=== PATIENT | female | born 1955 | race Caucasian/White ===

== ENCOUNTER 2018-09-08 05:13 | Observation (INO) ==
--- NOTE | 2018-08-19 15:49 | Anesthesiology Consultation ---
Date of Service August 19, 2018 Assessment & Plan (1) Encounter for pre-operative examination: Plan: - PCP= 08/18/18= "medically stable and cleared for c-spine surgery." Chart Review Chart Review: Acceptable Risk for Surgery and Patient NOT seen in Pre Admission Testing History Surgery Operation Date: 09/08/18 07:45 Proposed Procedures p C6-C7 Anterior Cervical Discectomy and Fusion, C4-C6 Removal of Instrumentation - Henrry Fletcher, DO Height/Weight Height: 5 ft 6 in Weight: 95.254 kg Allergies Allergy/AdvReac Type Severity Reaction Status Date / Time codeine AdvReac Severe N/V, Verified 08/14/18 10:08 DIAPHORESIS aspirin AdvReac Unknown VOMITING Verified 08/14/18 10:08 fentanyl AdvReac Unknown VOMITING Verified 08/14/18 10:08 Medications Home Medications Medication Instructions Recorded Confirmed Last Taken No Known Home Medications 08/14/18 08/14/18 Unknown Past Medical History Medical History Acid reflux Asthma NO INHALER Fibromyalgia History of anxiety Hx of Raynaud's syndrome IBS (irritable bowel syndrome) Obesity Osteoarthritis Sleep apnea NO DEVICE Venous angioma of brain LEFT FRONTAL LOBE Past Family History Family History Uncle Family hx of colon cancer Past Surgical History Surgical History History of X2 History of appendectomy History of carpal tunnel surgery RIGHT History of colonoscopy with polypectomy History of esophagogastroduodenoscopy (EGD) History of lumbar fusion L3-L4 LUMBAR FUSION History of surgery CEREBRAL ANGIOGRAPHY Hx of adenoidectomy Hx of dilation and curettage Hx of foot surgery RIGHT TOE FUSION Hx of fusion of cervical spine C3-C6 Hx of hemorrhoidectomy Hx of hysterectomy Hx of tonsillectomy Hx of total hip arthroplasty B/L; RIGHT JORGE= 04/13/18= GRADE 1 VIEW, URENA 2, ETT 7.0 AT [facility] Hx of tubal ligation History of PONV Yes STOP BANG Total 3 Social History Smoking Status: Former smoker Do You Dip or Chew Tobacco: No Smoking End Date: QUIT YEARS AGO Hx Alcohol Use: No Hx Substance Use: No Testing Electrocardiogram Date: 03/25/18 NSR at 69bpm. TWI in V2. "within normal limits" per PCP. Chest X-Ray Date: 03/25/18 Findings: + NAD Laboratory Results 08/18/18 WBC 6.77 H/H 13.9/43.3 PLATELETS 364 SODIUM 141 POTASSIUM 3.7 CHLORIDE 105 CO2 28 BUN 10.3 CREATININE 0.72 GLUCOSE 109 PT 10.6 PTT 30.9 INR 0.95
[2018-09-08] MEDS ORDERED: ACETAMINOPHEN 500 MG TAB PO SCH (06:00)
[2018-09-08] MEDS ORDERED: CEFAZOLIN 2000MG 2,000 MG/15 ML SYR IV SCH (06:00)
[2018-09-08] MEDS ORDERED: CeleBREX 200 MG CAP PO SCH (06:00)
[2018-09-08] MEDS ORDERED: LR 15ML/HR IV SCH (06:00)
[2018-09-08] MEDS ORDERED: GABAPENTIN 300 MG x 2 PO SCH (06:00)
[2018-09-08] MEDS ORDERED: fentaNYL citrate 100 MCG/2 ML VIAL ONE ×3 (06:26→08:49)
[2018-09-08] MEDS ORDERED: MIDAZOLAM HCL 1 MG/ML 2ML VIAL ONE (06:26)
[2018-09-08] MEDS ORDERED: HYDROmorphone INJ 2 MG/ML SYR/VIAL ONE (06:26)
[2018-09-08] MEDS ORDERED: NEOSTIGMINE METHYLSULFATE 1 MG/ML 10ML VIAL ONE (06:28)
[2018-09-08] MEDS ORDERED: ONDANSETRON INJ 2 MG/ML 2 ML VIAL ONE (06:28)
[2018-09-08] MEDS ORDERED: DEXAMETHASONE SOD INJ 4 MG/ML VIAL ONE (06:28)
[2018-09-08] MEDS ORDERED: PROPOFOL IV EMULSION 10 MG/ML 20 ML VIAL IV ONE (06:28)
[2018-09-08] MEDS ORDERED: ROCURONIUM BROMIDE 10 MG/ML 5 ML VIAL ONE (06:28)
[2018-09-08] MEDS ORDERED: LIDOCAINE HCL 2% 2 ML VIAL/AMP(20MG/ML) INFIL ONE (06:28)
[2018-09-08] MEDS ORDERED: GLYCOPYRROLATE 0.2 MG/ML VIAL ONE (06:28)
[2018-09-08] MEDS ORDERED: BACITRACIN INJ 50,000 UNIT VIAL ONE (07:07)
[2018-09-08] MEDS ORDERED: MEPERIDINE HCL 25 MG/ML CARP IV PRN (07:18)
[2018-09-08] MEDS ORDERED: PROMETHAZINE HCL 12.5 MG in SODIUM CHLORIDE 0.9% 50 ML IV PRN (07:18)
[2018-09-08] MEDS ORDERED: ONDANSETRON INJ 2 MG/ML 2 ML VIAL IV PRN ×2 (07:18→11:14)
[2018-09-08] MEDS ORDERED: LABETALOL HCL IV 5 MG/ML 20ML IV PRN (07:18)
[2018-09-08] MEDS ORDERED: ePHEDrine sulfate 50 MG/ML AMP IV PRN (07:18)
[2018-09-08] MEDS ORDERED: ATROPINE SULFATE 0.1 MG/ML 10ML SYR IV PRN (07:18)
[2018-09-08] MEDS ORDERED: PHENYLEPHRINE 100MCG/ML 5ML SYR IV PRN (07:18)
[2018-09-08] MEDS ORDERED: SCOPOLAMINE 1.5 MG TDSY TD ONE (07:19)
[2018-09-08] MEDS ORDERED: SCOPOLAMINE 1.5 MG TDSY ONE (07:21)
--- NOTE | 2018-09-08 07:28 | History & Physical Bridge Note ---
Date of Service September 08, 2018 History & Physical Bridge Note I have examined the patient, reviewed the History & Physical and in the interval since the performance of the History & Physical I have noted the following changes of clinical significance: no changes noted
--- NOTE | 2018-09-08 07:29 | History & Physical Report ---
Date of Service September 08, 2018 Assessment & Plan (1) Cervical stenosis of spinal canal: Anterior cervical discectomy and fusion C6-7 removal of instrumentation C4 -C6 Present on Admission?: Yes History of Present Illness Chief Complaint: Neck and arm pain Primary Care Provider: Hayes Ramirez This is a 63-year-old female well-known to me with chronic persistent neck and arm symptoms. After failing extensive course of nonoperative care she is here for surgical intervention. Allergies Allergy/AdvReac Type Severity Reaction Status Date / Time codeine AdvReac Severe N/V, Verified 09/08/18 05:42 DIAPHORESIS aspirin AdvReac Unknown VOMITING Verified 09/08/18 05:42 fentanyl AdvReac Unknown VOMITING Verified 09/08/18 05:42 Home Medications Home Medications Medication Instructions Recorded Confirmed Type No Known Home Medications 08/14/18 09/08/18 History Past Med/Surg History Family History Uncle Family hx of colon cancer Social History Current Living Situation: Spouse Other Information That Helps Us Care for You: No Feels Safe at Home: Yes Safety Concerns: Feels Safe At This Time Smoking Status: Former smoker Do You Dip or Chew Tobacco: No Smoking End Date: QUIT YEARS AGO Hx Alcohol Use: No Hx Substance Use: No Beliefs That Will Affect Care: None Preferred Language: Andorran Communication Ability: Effective Pastrycook Required: No Physical Exam 2 Vital Signs (Past 24 Hours): Last Vital Signs Temp 36.8 C 09/08/18 05:44 Pulse 67 09/08/18 05:44 Resp 20 09/08/18 05:44 BP 144/88 H 09/08/18 05:44 Pulse Ox 97 09/08/18 05:44 Results & Data Medications Administered Acetaminophen (Tylenol) 1,000 mg PO PREOP ALEC Stop: 09/08/18 18:00 Last Admin: 09/08/18 05:56 Dose: 1,000 mg Celecoxib (Celebrex) 200 mg PO PREOP ALEC Stop: 09/08/18 18:00 Last Admin: 09/08/18 05:56 Dose: 200 mg Gabapentin (Neurontin) 600 mg PO PREOP ALEC Stop: 09/08/18 18:00 Last Admin: 09/08/18 05:56 Dose: 600 mg Lactated Ringer's (Lr) 1,000 mls @ 15 mls/hr IV .Q24H ALEC Stop: 09/09/18 05:59 Last Admin: 09/08/18 06:08 Dose: 15 mls/hr
[2018-09-08] MEDS ORDERED: CHECK SCOPOLAMINE PATCH PLACEMENT SCH (08:00)
[2018-09-08] MEDS ORDERED: ePHEDrine sulfate 50 MG/ML SYR ONE (08:22)
[2018-09-08] MEDS ORDERED: METOCLOPRAMIDE HCL INJ 5 MG/ML 2 ML VIAL ONE (08:22)
[2018-09-08] MEDS ORDERED: PHENYLEPHRINE 100MCG/ML 5ML SYR ONE (08:22)
[2018-09-08] MEDS ORDERED: raNITIdine HCl 25 MG/ML VIAL ONE (08:22)
[2018-09-08] MEDS ORDERED: ESMOLOL HCL INJ 10 MG/ML 10ML VIAL IV ONE (09:20)
--- NOTE | 2018-09-08 09:20 | Operative Report ---
Post Operative Report Pre & Post Diagnosis Operation Date: 09/08/18 07:45 Pre-Op Diagnosis: Cervical spinal stenosis with radiculopathy Post-Op Diagnosis: Same Procedure Operation Date: 09/08/18 07:45 Actual Procedures #1 removal of anterior cervical plate and screws C4-5 C5-6. #2 exploration of fusion C4-5 C5-6. #3 anterior cervical discectomy C6-7 with bilateral foraminotomies. #4 anterior cervical arthrodesis C6-7. #5 placement of cortical allograft filled with DBM 9 mm in height at C6-7. #6 application gary plate and screws across C6-7. Surgeon Henrry Fletcher, DO Chairman Emeritus None Estimated Blood Loss 10 Findings Consistent with Post-Op Diagnosis Specimens None Description of Procedure Patient was met with preoperatively case discussed all questions addressed. After informed consent obtained patient was taken to the operative suite underwent intubation placed in a supine position the Apolinar table and Holland headholder. All bony prominences well-padded eyes inspected to ensure no external pressure placed upon the. This point the anterior cervical spine was prepped and draped in a sterile fashion. With the assistance of fluoroscopy identified the C5-6 disc space and a transverse incision was placed along the right anterior aspect of the cervical spine overlying this region. Sharp dissection with the assistance of bipolar elective cautery was performed down to and exposing the anterior cervical spine from C4-C7. The plate was identified and removed without difficulty. The fusion was noted to be intact between C4-5 and C5-6. I then performed a complete discectomy of C6-7 out to the uncovertebral joints bilaterally. Leonard distracting pins were utilized to assist in visualization. Removed all posterior annular fibers longitudinal ligament bilateral foraminotomies performed for complete decompression. Endplates were then burred to subcortical bleeding bone and a 9 mm cortical allograft filled with DBM tamped in position. Distraction apparatus was removed and a gary plate and screws applied with the assistance of fluoroscopy. Incision was then copious irrigated explored to ensure no damage to surrounding structures remaining bleeding. 10 round MANJULA drain inserted. The incision was then closed with 2 Vicryl in a fashion of 4 Monocryl for final skin closure Steri-Strip sterile dressings placed. Patient awakened and taken to PACU in a stable condition. I attest to the content of the Intraoperative Record and any orders documented therein. Any exceptions are noted below.
[2018-09-08] MEDS: HYDROmorphone INJ 1 MG/ML SYRINGE IV PRN ×4 (09:45→10:00)
--- NOTE | 2018-09-08 10:09 | Fluoroscopy Report ---
FL cervical 2-3V HISTORY: 63 years-old Female C6-C7 ACDF status post fusion of the cervical spine COMPARISON: Cervical spine. Images 06/12/2009 TECHNIQUE: 3 spot fluoroscopic images of the cervical spine were obtained utilizing 12.2 seconds fluo roscopy time FINDINGS: Anterior fusion hardware is noted at what appears to be the C6-C7 level anteriorly. Remote postsurgic al changes are seen at C4-C5 and C5-C6. Alignment appears satisfactory on these images. IMPRESSION: Fluoroscopic assistance as above. Please see operative report for further details. The above report was generated using voice recognition software. It may contain grammatical, syntax o r spelling errors. Electronically signed by: Lance Peña M.D. 09/08/2018 10:08 AM
[2018-09-08] MEDS ORDERED: LARYING-O-JET KIT (LTA) ONE (10:10)
--- NOTE | 2018-09-08 10:42 | Anesthesiology Progress Note ---
Date of Service September 08, 2018 Anesthesia Post Procedure Vital Signs Vital Signs: Temp Pulse Pulse Resp BP BP Pulse Ox 09/08/18 10:25 36.5 C 57 L 14 108/78 94 09/08/18 10:15 55 L 14 116/74 94 09/08/18 10:05 56 L 14 130/82 95 09/08/18 09:55 57 L 14 128/84 95 09/08/18 09:45 59 L 14 132/84 94 09/08/18 09:35 65 14 135/83 94 09/08/18 09:26 36.0 C L 82 14 130/88 94 09/08/18 05:44 36.8 C 67 20 144/88 H 97 Pain Intensity Neck: Pain Intensity: 3 Notes Mental Status: alert / awake / arousable Patient Amnestic to Procedure: Yes Nausea / Vomiting: adequately controlled Pain: adequately controlled Airway Patency, RR, SpO2: stable & adequate BP & HR: stable & adequate Hydration State: stable & adequate Anesthetic Complications: no major complications apparent and Pt Satisfied with anesthetic care Notes: The patient is awake and doing well. Her neck does not appear to be swollen. The patient was reminded to let her nurse know immediately if she has any neck swelling or difficulty breathing when she is on the floor.
[2018-09-08] MEDS ORDERED: NALOXONE HCL 0.4 MG/1 ML VIAL/CARP IV PRN (11:14)
[2018-09-08] MEDS ORDERED: MAGNESIUM HYDROXIDE SUSP 30 ML UDC PO PRN (11:14)
[2018-09-08] MEDS ORDERED: DEXAMETHASONE SOD PHOSPHATE 8 MG in SYRINGE 0 ML IV PRN (11:14)
[2018-09-08] MEDS ORDERED: DO NOT ADMINISTER FLU VACCINE PRN (11:14)
[2018-09-08] MEDS ORDERED: DiphenhydrAMINE HCL 50 MG/ML VIAL IV PRN (11:14)
[2018-09-08] MEDS ORDERED: LORazepam 0.5 MG/1 ML VIAL IV PRN (11:14)
[2018-09-08] MEDS ORDERED: LORazepam 0.5 MG TAB PO PRN (11:14)
[2018-09-08] MEDS ORDERED: OXYCODONE HCL IR 5 MG TAB (IMMEDIATE RELEASE) PO PRN (11:14)
[2018-09-08] MEDS ORDERED: HYDROmorphone INJ 0.5 MG/0.5 ML SYR IV PRN (11:14)
[2018-09-08] MEDS ORDERED: DO NOT ADMINISTER PNEUMOCOCCAL VACCINE PRN (11:14)
[2018-09-08] MEDS ORDERED: HYDROCODONE/ACETAMOPHEN 5/325MG TAB PO PRN (11:14)
[2018-09-08] MEDS ORDERED: RACEPINEPHRINE 2.25% NEBU SOLN 0.5 ML VIAL INH PRN (11:14)
[2018-09-08] MEDS ORDERED: ACETAMINOPHEN 1,000 MG/100 ML VIAL IV PRN (11:14)
[2018-09-08] MEDS: CHECK SCOPOLAMINE PATCH PLACEMENT SCH ×2 (12:30→16:04)
[2018-09-08] MEDS ORDERED: CHECK SCOPOLAMINE PATCH PLACEMENT ONE (13:15)
[2018-09-08] MEDS: SODIUM CHLORIDE 0.9% 1000ML 1,000 ML IV SCH (13:39)
[2018-09-08] MEDS: CEFAZOLIN 2000MG 2,000 MG/15 ML SYR IV SCH ×2 (13:39→21:40)
[2018-09-08] MEDS ORDERED: NURSING DECISION MEDICATION ONE (16:06)
[2018-09-08] MEDS ORDERED: COUGH DROP (SUGAR FREE) LOZ 24 LOZ/1 BOX BUCCAL PRN (16:33)
[2018-09-08] MEDS: DOCUSATE SODIUM 100 MG CAP PO SCH (21:40)
[2018-09-09] MEDS: CHECK SCOPOLAMINE PATCH PLACEMENT SCH ×3 (00:01→16:17)
[2018-09-09] MEDS: SODIUM CHLORIDE 0.9% 1000ML 1,000 ML IV SCH (02:07)
[2018-09-09] MEDS: CEFAZOLIN 2000MG 2,000 MG/15 ML SYR IV SCH (06:08)
[2018-09-09] MEDS: DOCUSATE SODIUM 100 MG CAP PO SCH ×2 (08:37→20:34)
--- NOTE | 2018-09-09 08:40 | Anesthesiology Progress Note ---
Date of Service September 09, 2018 Anesthesia Post Procedure Vital Signs Vital Signs: Temp Pulse Pulse Resp BP Pulse Ox Pulse Ox 09/09/18 05:44 36.6 C 65 18 108/67 95 09/09/18 05:32 96 09/09/18 03:44 36.8 C 64 16 115/76 96 09/09/18 03:40 65 16 97 09/09/18 02:00 36.6 C 86 16 112/74 95 09/09/18 00:04 36.7 C 76 16 96/65 L 96 09/08/18 22:57 78 16 97 09/08/18 21:55 36.6 C 87 16 117/74 95 09/08/18 20:21 77 18 96 09/08/18 20:10 36.6 C 94 H 18 106/69 95 09/08/18 18:10 36.3 C L 93 H 18 118/84 93 09/08/18 16:10 36.4 C L 97 H 16 113/74 95 09/08/18 16:05 80 16 112/72 96 09/08/18 15:35 81 18 95 09/08/18 14:00 61 16 119/79 96 09/08/18 12:53 67 18 129/82 91 09/08/18 12:14 58 L 12 112/73 97 09/08/18 11:35 87 18 97 09/08/18 11:30 64 16 125/82 96 09/08/18 11:00 36.3 C L 88 14 133/88 95 95 09/08/18 10:40 55 L 16 114/71 95 09/08/18 10:25 36.5 C 57 L 14 108/78 94 09/08/18 10:15 55 L 14 116/74 94 09/08/18 10:05 56 L 14 130/82 95 09/08/18 09:55 57 L 14 128/84 95 09/08/18 09:45 59 L 14 132/84 94 09/08/18 09:35 65 14 135/83 94 09/08/18 09:26 36.0 C L 82 14 130/88 94 Pain Intensity Neck: Pain Intensity: 2 Notes Mental Status: alert / awake / arousable Patient Amnestic to Procedure: Yes Nausea / Vomiting: adequately controlled Pain: adequately controlled Airway Patency, RR, SpO2: stable & adequate BP & HR: stable & adequate Hydration State: stable & adequate Anesthetic Complications: no major complications apparent and Pt Satisfied with anesthetic care
--- NOTE | 2018-09-09 10:50 | Orthopedic Progress Note ---
Date of Service September 09, 2018 Assessment & Plan (1) Cervical stenosis of spinal canal: This time we will maintain the MANJULA drain another 24 hours secondary to the extensive dissection required for hardware removal. If she continues to progress appropriately we anticipate discharge home tomorrow. Present on Admission?: Yes Subjective Neck pain well controlled. Arm symptoms improved. No hoarseness or swallowing deficits. Physical Exam 2 Vital Signs (Past 24 Hours): Last Vital Signs Temp 36.7 C 09/09/18 09:44 Pulse 65 09/09/18 09:44 Resp 16 09/09/18 09:44 BP 108/74 09/09/18 09:44 Pulse Ox 96 09/09/18 09:44 Physical Exam: On exam she is in the chair at the bedside. The dressing and drain are intact. She has good strength testing.
[2018-09-10] MEDS: CHECK SCOPOLAMINE PATCH PLACEMENT SCH ×2 (00:23→07:55)
[2018-09-10 07:15] VITALS: BP 117/73; TEMP 97.9
[2018-09-10 07:39] VITALS: O2SAT 95
[2018-09-10] MEDS: DOCUSATE SODIUM 100 MG CAP PO SCH (07:56)
[2018-09-10] MEDS ORDERED: POLYETHYLENE (MIRALAX) 17 GM PACK PO PRN (09:22)
[2018-09-10] MEDS ORDERED: BISACODYL 5 MG TABEC PO PRN (09:22)
--- NOTE | 2018-09-10 09:58 | Discharge Summary ---
Date of Service September 10, 2018 Admission HPI Per Admitting Provider This is a 63-year-old female well-known to me with chronic persistent neck and arm symptoms. After failing extensive course of nonoperative care she is here for surgical intervention. Principal Diagnosis Cervical spinal stenosis Discharge Data Allergies Allergy/AdvReac Type Severity Reaction Status Date / Time codeine AdvReac Severe N/V, Verified 09/08/18 05:42 DIAPHORESIS aspirin AdvReac Unknown VOMITING Verified 09/08/18 05:42 fentanyl AdvReac Unknown VOMITING Verified 09/08/18 05:42 Procedures Performed Operation Date: 09/08/18 07:45 Actual Procedures p C6-C7 Anterior Cervical Discectomy and Fusion, C4-C6 Removal of Instrumentation(Not Applicable) - Henrry Fletcher, Ordered Studies 09/08/18 07:00 FL cervical 2-3V Routine FL fluoroscopy <1hr Routine Hospital Course (1) Cervical stenosis of spinal canal: Patient underwent anterior cervical discectomy and fusion tolerated as well as taken to orthopedic floor postoperative. Postop day 1 arm symptoms were improving she is swallowing well. MANJULA drain still significant. Subsequent postop day #2 the drainage was decreased pain well controlled she subsequently discharged home. Discharge orders and instructions found in the chart for further review. Total Time Total Time Spent Total Time Spent (In Minutes): Not applicable Discharge Plan Discharge Items Patient Disposition: Home - Self-Care Reason For Visit: Spinal Stenosis, Cervical Region Discharge Diagnosis: cervical stenosis Discharge Goals: Improve function Activity: Per 'Additional Instructions' section Non-emergency contact: Primary Care Provider Call non-emergency contact if: you have any medication questions Follow-up/Referrals: Hayes Ramirez M.D. [Primary Care Provider] - Diet: Regular Addtl Provider Instructions: ACTIVITY RECOMMENDATIONS: SELF CARE INSTRUCTIONS AFTER CERVICAL FUSIONS 1. No smoking. Smoking drastically decreases the chance of a solid fusion. 2. No bending, lifting more than 5 pounds, or twisting (roll like a log when turning in bed). 3. You may shower 3 days after surgery. Thoroughly dry wound. Do not soak in the tub. 4. Cervical collar: Must be worn at all times including sleeping. You may remove the brace only to bath, eat and if you are sitting in a recliner. 5. Please walk as much as you can for exercise. Gradually increase the distance that you walk as your endurance increases. SPECIAL CARE INSTRUCTIONS: VERY IMPORTANT TO READ AND REVIEW A. Do not take any anti-inflammatory medications (i.e. Indocin, Advil, Aspirin, Naprosyn, Aleve, Motrin, etc.) as these may inhibit the chance of a solid fusion. Tylenol is okay to take. B. Your surgical incision has been closed with a cosmetic suture under the skin that will dissolve in about 6 weeks. In 14 days, you can use a pair of clean scissors and cut the suture that is left outside of the skin at the ends of your incision. C. Complications are uncommon, but please contact us if you have any signs or symptoms of: 1. wound infection (fever higher than 102.5 degrees F, redness, separation of wound, drainage, or increasing pain from the incision) 2. blood clots in legs (pain, swelling, redness and warmth in legs) 3. urinary tract infection (fever higher than 102.5 degrees, burning upon urination or increased frequency of urination) 4. nerve problems (inability to walk on your toes or heels, numbness, loss of bowel or bladder control) 5. any other symptoms that concern you. D. Please call the office at if you have any concerns or questions about your operation or recovery. MANAGING PAIN AFTER SPINAL SURGERY 1. Narcotic medication is intended for short-term use and will be provided for surgical pain. Surgical pain usually lasts for a period of 4-6 weeks. Narcotic medication includes Percocet, Vicodin, Darvocet, Tylenol #3 or Lortab. 2. Longer-term pain is more appropriately treated with non-narcotic medication such as Tylenol ES. 3. Muscle spasm is not appropriately treated with narcotics. Muscle relaxers such as Soma, Flexeril or Skelaxin can be used along with Tylenol ES. 4. Remember that we all live with some "aches and pains". This is not unusual or uncommon after an injury or as we get older. 5. We will provide appropriate medication within the normal guidelines of their prescribed use. We will also be very cautious and aware of potential abuse and extended duration of patients' medication needs. 6. Please allow 2-3 days to process refills. Prescriptions will not be mailed but must be picked up at the office. FOLLOW UP VISIT: Keep your scheduled follow-up appointment. Any questions, please call the office at . Prescriptions: No Action No Known Home Medications RF: 0 Stand-Alone Forms: [facility] Discharge Orders: Discharge Order (Routine); Ordered 09/10/18 Ordered By: Henrry Fletcher Admission Data Admit Date/Time: 09/08/18 11:08 Attending Provider: Henrry Fletcher Admit Provider: Henrry Fletcher Primary Care Provider: Hayes Ramirez Service: Surgical Services
[2018-09-10 10:16] VITALS: PULSE 80
[2018-09-11] MEDS ORDERED: SCOPOLAMINE 1.5 MG TDSY TD SCH (07:00)
== END 2018-09-10 11:49 | disposition home or self-care (01) ==
LOC: 3E 05:13 → ASU 05:13